=== PATIENT | female | born 1945 | race Caucasian/White ===

== ENCOUNTER 2021-01-11 16:03 | Inpatient (IN) ==
[2021-01-11 16:31] LABS: Basophils % 0.2 %; Eosinophils % 0.1 %; Hematocrit 34.1 % (35.3-44.9); Hemoglobin 10.5 g/dL (11.5-15.4); Immature Granulocytes % 0.4 % (0-4); Lymphocytes # 0.9 K/mcL (0.6-4.6); Lymphocytes % 9.3 %; Mean Corpuscular HGB Conc 30.8 g/dL (31.6-35.5); Mean Corpuscular Hemoglobin 26.4 pg (28.0-33.3); Mean Corpuscular Volume 85.7 fL (83.0-100.0); Mean Platelet Volume 10.8 fL (9.4-12.4); Monocytes # 0.6 K/mcL (0.0-1.3); Monocytes % 6.3 %; Platelet Count 262 K/mcL (140-400); Red Blood Count 3.98 M/mcL (3.82-4.97); Red Cell Distribution Width 17.1 % (11.5-14.5); Segmented Neutrophils % 83.7 %; White Blood Count 9.6 K/mcL (4.3-11.1)
[2021-01-11 16:36] LABS: VBG HCO3 30 mEq/L (21-27); VBG PCO2 53 mmHg (41-51); VBG PH 7.36 pH Units (7.32-7.42); VBG PO2 44 mmHg (25-50)
[2021-01-11 16:48] LABS: Calcium 9.3 mg/dL (8.6-10.3); Potassium 4.2 mEq/L (3.5-5.1)
[2021-01-11] MEDS ORDERED: Furosemide 20 MG/2 ML VIAL IVP ONE (20:33)
[2021-01-11] MEDS ORDERED: 0.9 % Sodium Chloride 1,000 ML IVC SCH (23:45)
[2021-01-11] MEDS ORDERED: Ondansetron 4 MG/2 ML VIAL IVP PRN (23:48)
[2021-01-11] MEDS ORDERED: Acetaminophen 325 MG TABLET PO PRN (23:48)
[2021-01-11] MEDS ORDERED: Naloxone 0.4 MG/ML INJ IVP PRN (23:48)
[2021-01-12] MEDS ORDERED: Acetaminophen 325 MG TABLET PO PRN (03:27)
[2021-01-12] MEDS ORDERED: 0.9 % Sodium Chloride 1,000 ML IVC SCH (03:27)
[2021-01-12] MEDS ORDERED: Ondansetron 4 MG/2 ML VIAL IVP PRN (03:27)
[2021-01-12] MEDS ORDERED: Naloxone 0.4 MG/ML INJ IVP PRN (03:27)
[2021-01-12] MEDS: Nystatin POWDER 30 GM BOTTLE TP SCH ×4 (04:30→21:30)
[2021-01-12 06:45] LABS: Hematocrit 30.9 % (35.3-44.9); Hemoglobin 9.4 g/dL (11.5-15.4); Mean Corpuscular HGB Conc 30.4 g/dL (31.6-35.5); Mean Corpuscular Hemoglobin 26.5 pg (28.0-33.3); Mean Platelet Volume 10.5 fL (9.4-12.4); Platelet Count 208 K/mcL (140-400); Red Blood Count 3.55 M/mcL (3.82-4.97); Red Cell Distribution Width 17.1 % (11.5-14.5); White Blood Count 5.8 K/mcL (4.3-11.1)
[2021-01-12 07:07] LABS: BUN/Creatinine Ratio 24 (6-26); Blood Urea Nitrogen 26 mg/dL (8-23); Calcium 8.6 mg/dL (8.6-10.3); Carbon Dioxide 33 mEq/L (23-29); Chloride 102 mEq/L (98-107); Glucose 105 mg/dL (70-105); Osmolality,Calculated 297 (280-300); Potassium 3.9 mEq/L (3.5-5.1); Sodium 141 mEq/L (136-145); eGFR For African Americans > 60 (> 60); eGFR For Non-African Americans 50 (> 60)
[2021-01-12] MEDS: Apixaban 5 MG TABLET PO SCH ×2 (09:32→21:33)
[2021-01-12] MEDS: Gabapentin 400 MG CAPSULE PO SCH ×3 (09:32→21:33)
[2021-01-12] MEDS ORDERED: Nystatin POWDER 30 GM BOTTLE TP PRN (10:40)
[2021-01-12 11:14] LABS: Adenovirus Not Detected (Not Detect); Bordetella Pertussis Not Detected (Not Detect); Chlamydophila pneumoniae Not Detected (Not Detect); Coronavirus 229E Not Detected (Not Detect); Coronavirus HKU1 Not Detected (Not Detect); Coronavirus NL63 Not Detected (Not Detect); Coronavirus OC43 Not Detected (Not Detect); Human Metapneumovirus Not Detected (Not Detect); Human Rhinovirus/Enterovirus Not Detected (Not Detect); Influenza A Subtype 2009 H1 Not Detected (Not Detect); Influenza B Not Detected (Not Detect); Mycoplasma pneumoniae Not Detected (Not Detect); Parainfluenza Virus 1 Not Detected (Not Detect); Parainfluenza Virus 2 Not Detected (Not Detect); Parainfluenza Virus 3 Not Detected (Not Detect); Parainfluenza Virus 4 Not Detected (Not Detect); Respiratory Syncytial Virus Not Detected (Not Detect)
[2021-01-12] MEDS: DilTIAZem CD (24hr) 180 MG CAP.ER.24H PO SCH (11:57)
[2021-01-12] MEDS: Loratadine 10 MG TABLET PO SCH (17:09)
[2021-01-12] MEDS: MethylPREDNISolone 40 MG/ML VIAL IVP SCH ×2 (17:50→23:54)
[2021-01-12] MEDS ORDERED: *HR* Metoprolol 5 MG/5 ML VIAL IVP PRN (19:23)
[2021-01-13 07:14] LABS: Basophils % 0.2 %; Hematocrit 33.6 % (35.3-44.9); Immature Granulocytes % 0.7 % (0-4); Lymphocytes # 0.4 K/mcL (0.6-4.6); Mean Corpuscular HGB Conc 29.8 g/dL (31.6-35.5); Mean Corpuscular Hemoglobin 25.7 pg (28.0-33.3); Mean Corpuscular Volume 86.4 fL (83.0-100.0); Mean Platelet Volume 10.7 fL (9.4-12.4); Monocytes % 0.7 %; Neutrophils # 4.1 K/mcL (1.6-8.9); Platelet Count 234 K/mcL (140-400); Red Blood Count 3.89 M/mcL (3.82-4.97); Red Cell Distribution Width 16.7 % (11.5-14.5); Segmented Neutrophils % 90.4 %; White Blood Count 4.5 K/mcL (4.3-11.1)
[2021-01-13] MEDS: Loratadine 10 MG TABLET PO SCH (07:21)
[2021-01-13] MEDS: DilTIAZem CD (24hr) 180 MG CAP.ER.24H PO SCH (07:21)
[2021-01-13] MEDS: Gabapentin 400 MG CAPSULE PO SCH ×3 (07:21→21:29)
[2021-01-13] MEDS: Apixaban 5 MG TABLET PO SCH ×2 (07:21→21:29)
[2021-01-13] MEDS: Nystatin POWDER 30 GM BOTTLE TP SCH ×3 (07:22→21:30)
[2021-01-13] MEDS: MethylPREDNISolone 40 MG/ML VIAL IVP SCH ×2 (07:22→17:28)
[2021-01-13 07:24] LABS: BUN/Creatinine Ratio 29 (6-26); Blood Urea Nitrogen 27 mg/dL (8-23); Calcium 9.2 mg/dL (8.6-10.3); Carbon Dioxide 31 mEq/L (23-29); Chloride 102 mEq/L (98-107); Glucose 181 mg/dL (70-105); Osmolality,Calculated 300 (280-300); Potassium 4.3 mEq/L (3.5-5.1); Sodium 140 mEq/L (136-145); eGFR For African Americans > 60 (> 60); eGFR For Non-African Americans 58 (> 60)
[2021-01-13] MEDS: Furosemide 20 MG/2 ML VIAL IVP SCH (11:25)
[2021-01-13] MEDS ORDERED: Perflutren Lipid Microsphere 1.3 ML in 0.9 % Sodium Chloride 8.7 ML IVP PRN (14:00)
[2021-01-14] MEDS: MethylPREDNISolone 40 MG/ML VIAL IVP SCH (05:05)
[2021-01-14 07:45] LABS: Hematocrit 32.9 % (35.3-44.9); Immature Granulocytes % 0.7 % (0-4); Lymphocytes # 0.5 K/mcL (0.6-4.6); Lymphocytes % 7.1 %; Mean Corpuscular HGB Conc 30.4 g/dL (31.6-35.5); Mean Corpuscular Hemoglobin 26.4 pg (28.0-33.3); Mean Corpuscular Volume 86.8 fL (83.0-100.0); Mean Platelet Volume 10.4 fL (9.4-12.4); Monocytes # 0.2 K/mcL (0.0-1.3); Monocytes % 2.6 %; Neutrophils # 6.2 K/mcL (1.6-8.9); Platelet Count 229 K/mcL (140-400); Red Blood Count 3.79 M/mcL (3.82-4.97); Red Cell Distribution Width 16.8 % (11.5-14.5); Segmented Neutrophils % 89.6 %; White Blood Count 6.9 K/mcL (4.3-11.1)
[2021-01-14 08:01] LABS: BUN/Creatinine Ratio 40 (6-26); Blood Urea Nitrogen 35 mg/dL (8-23); Calcium 9.4 mg/dL (8.6-10.3); Carbon Dioxide 32 mEq/L (23-29); Chloride 104 mEq/L (98-107); Glucose 176 mg/dL (70-105); Osmolality,Calculated 304 (280-300); Potassium 4.6 mEq/L (3.5-5.1); Sodium 141 mEq/L (136-145); eGFR For African Americans > 60 (> 60); eGFR For Non-African Americans > 60 (> 60)
[2021-01-14] MEDS: Nystatin POWDER 30 GM BOTTLE TP SCH ×3 (08:22→22:27)
[2021-01-14] MEDS: Loratadine 10 MG TABLET PO SCH (08:23)
[2021-01-14] MEDS: DilTIAZem CD (24hr) 180 MG CAP.ER.24H PO SCH (08:23)
[2021-01-14] MEDS: Furosemide 20 MG/2 ML VIAL IVP SCH (08:23)
[2021-01-14] MEDS: Apixaban 5 MG TABLET PO SCH ×2 (08:23→22:26)
[2021-01-14] MEDS: Gabapentin 400 MG CAPSULE PO SCH ×3 (08:24→22:26)
[2021-01-15] MEDS: Loratadine 10 MG TABLET PO SCH (07:52)
[2021-01-15] MEDS: DilTIAZem CD (24hr) 180 MG CAP.ER.24H PO SCH (07:52)
[2021-01-15] MEDS: Gabapentin 400 MG CAPSULE PO SCH (07:52)
[2021-01-15] MEDS: Apixaban 5 MG TABLET PO SCH (07:52)
[2021-01-15] MEDS: Nystatin POWDER 30 GM BOTTLE TP SCH (07:54)
[2021-01-15 11:44] VITALS: BP 112/79
[2021-01-15] MEDS ORDERED: Furosemide 20 MG/2 ML VIAL IVP ONE (12:00)
[2021-01-16] MEDS ORDERED: Furosemide 20 MG TABLET PO SCH (09:00)
== END 2021-01-15 13:00 | disposition home health service (06) | DRG 682 ==
LOC: EMEROOPIK 16:03 → INPPIK 16:03
PROVIDERS: ADMIT Family Medicine; ATTEND Family Medicine